=== PATIENT | male | born 1980 | race Caucasian/White ===

== ENCOUNTER 2022-12-27 09:25 | Emergency (ER) | payer SELFPAY ==
[~2022-12-27] VITALS: Wt 184.6 kg
[2022-12-27] MEDS ORDERED: TRAMADOL HCL50 MG PO (09:46)
[2022-12-27] MEDS ORDERED: CLINDAMYCIN HC300 MG PO (09:46)
== END 2022-12-27 10:21 | disposition home or self-care (01) ==
LOC: ED 09:25
DX: S62.635A Displaced fracture of distal phalanx of left ring finger, initial encounter for closed fracture (principal); S61.215A Laceration without foreign body of left ring finger without damage to nail, initial encounter; W26.8XXA Contact with other sharp object(s), not elsewhere classified, initial encounter; Y93.89 Activity, other specified; Y92.89 Other specified places as the place of occurrence of the external cause; Y99.8 Other external cause status